=== PATIENT | female | born 1990 | race Caucasian/White ===

== ENCOUNTER 2018-08-23 10:15 | Inpatient (IN) | payer OTHER ==
[~2018-08-23] VITALS: Ht 172.7 cm; Wt 84.4 kg
[~2018-08-23 10:15] MED LIST: FLUC150A PO; IBUP800 PO; OXYACE5T PO; SULTRIDS PO; Verotin-Gr Cap1 EACH PO; [UNRECOGNIZED DRUG - REMARK]
[2018-08-27 11:01] LABS: BASOPHILS ABSOLUTE AUTO 0.04 K/mm3 (0.00-0.23); BASOPHILS PERCENT AUTO 0 % (0-2); EOSINOPHILS PERCENT AUTO 2 % (0-6); Hematocrit 32.6 % (33.0-51.0); Hemoglobin 10.7 g/dL (11.5-16.0); IMMATURE GRAN ABSOLUTE AUTO 0.06 K/mm3 (0.00-0.10); IMMATURE GRAN PERCENT AUTO 1 % (0-1); LYMPHOCYTES ABSOLUTE AUTO 1.94 K/mm3 (0.84-5.20); LYMPHOCYTES PERCENT AUTO 19 % (21-46); MONOCYTES ABSOLUTE AUTO 0.92 K/mm3 (0.16-1.47); MONOCYTES PERCENT AUTO 9 % (4-13); Mean Corpuscular HGB 28.9 pg (26.0-34.0); Mean Corpuscular HGB Conc 32.8 g/dL (31.5-36.5); Mean Corpuscular Volume 88 fL (80-100); NEUTROPHILS ABSOLUTE AUTO 6.91 K/mm3 (1.96-9.15); NEUTROPHILS PERCENT AUTO 69 % (41-73); Platelet Count 305 K/mm3 (150-400); RDW Coefficient Variation 13.3 % (11.7-14.2); White Blood Cell Count 10.07 K/mm3 (4.00-11.30)
--- NOTE | 2018-08-27 11:45 | NUR ---
PREVISIT NOTE PT WENT TO ADMITTING FIRST, THEN LAB CALLED TO COME DOWN FOR PREVISIT TO [facility], LAB STAFF BROUGHT DOWN BEFORE DRAWING. CORRECT BAND PLACED AND LABS DRAWN - PREVISIT COMPLETED CERTIFICATE STARTED, DECLINED HEALTH START, TOUR GIVEN PT AND S.O. DECLINED FURTHER QUESTIONS - DISCUSSED PATERNITY PAPERS PT AND S.O. PLAN TO FILL OUT AFTER DELIVERY. TO RETURN IN AM AT 0530. PT AND S.O. VERBALIZED UNDERSTANDING NOT TO EAT OR DRINK AFTER 2359 TONIGHT, PER DR KAPOOR MAY DRINK WATER UNTIL 0330.
--- NOTE | 2018-08-28 08:03 | NUR ---
08/28/18 0803 Ewa Youssef REPEAT SECTION DONE AND COMPLETE. DELIVERY OF VIABLE FEMALE APGARS 9/9, WEIGHT 3235 GMS. PLACENTA REMOVED MANUALLY, WEIGHT 655 GM. CORD SEGMENT SENT WITH RT FOR CORD GASSES, CORD BLOOD SAMPLE SENT WITH BABY RN FOR BLOOD TYPE.
[2018-08-28 08:04] LABS: PCO2 Cord - Arterial 60.1 mmHg (40-50); PO2 Cord - Arterial 10.2 mmHg (16-20); pH Cord - Arterial 7.21 (7.28-7.35)
[2018-08-28 08:05] LABS: PCO2 Cord - Venous 40.3 mmHg (40-50); PO2 Cord - Venous 26.1 mmHg (28-32); pH Umbilical Cord - Venous 7.35 (7.26-7.35)
[2018-08-29 05:17] LABS: Hematocrit 29.9 % (33.0-51.0); Hemoglobin 9.6 g/dL (11.5-16.0); Mean Corpuscular HGB 28.7 pg (26.0-34.0); Mean Corpuscular HGB Conc 32.1 g/dL (31.5-36.5); Mean Corpuscular Volume 89 fL (80-100); Mean Platelet Volume 10.5 fL (9.1-12.4); Platelet Count 254 K/mm3 (150-400); RDW Coefficient Variation 13.5 % (11.7-14.2); RDW Standard Deviation 44.3 fL (35.1-46.3); Red Blood Cell Count 3.35 M/mm3 (3.80-5.20); White Blood Cell Count 12.21 K/mm3 (4.00-11.30)
--- NOTE | 2018-08-29 09:20 | NUR ---
PT UP TO VOID
--- NOTE | 2018-08-29 15:32 | NUR ---
CONSULT. MOM IS EXPERIENCED WITH BF, NIPPLES STARTED OUT INVERTED AND SHE USED A SHIELD, WITH THIS BABY NIPPLE IS SHORT SHANKED AND WILL PROBABLY FLATTEN WITH ENGORGEMENT. HAS USED SHIELD OFF AND ON WITH THIS BABY. BABY JUST FED, IS DROWSY AND NOT WILLING TO RELATCH. INSTRUCT/DEMO POSITIONING TO HELP OBTAIN A DEEPER ASYMETRIC LATCH AND THEN WIDEN LATCH FURTHER UNTIL IT IS COMFORTABLE. INSTRUCT IN SHIELD USE AND WEANING AFTER ENGORGEMENT, AND TO AVOID MARKED NIPPLE BREAKDOWN. INSTRUCT IN CHANGES TO EXPECT DURING THE FIRST WEEK WITH FEEDINGS AND WITH BABY AND REFERRED TO BF [facility] AND PAGE 18 OF BF [facility] FOR PHOTOS AND INFORMATION. QUESTIONS ANSWERED.
--- NOTE | 2018-08-29 15:42 | NUR ---
AMBULATING IN HALLS
[2018-08-30] MEDS ORDERED: IBUP800 PO (09:38)
[2018-08-30] MEDS ORDERED: Percocet 5-3251 EACH PO (09:38)
== END 2018-08-30 10:50 | disposition home or self-care (01) | DRG 788 ==
LOC: BC 08-28 05:18
PROVIDERS: ADMIT Obstetrics & Gynecology
PROC: 10D00Z1 Extraction of Products of Conception, Low, Open Approach (ICD-10-PCS; principal; 2018-08-28 07:30)
DX: O34.211 Maternal care for low transverse scar from previous cesarean delivery (principal); Z3A.39 39 weeks gestation of pregnancy; Z37.0 Single live birth; O69.81X0 Labor and delivery complicated by cord around neck, without compression, not applicable or unspecified
CPT/HCPCS: 36415; 82803; 85025; 85027; 86850; 86900; 86901; J0690; J1885; J2270; J2590; J2765; J7120

== ENCOUNTER 2019-04-25 14:48 | Observation (INO) | payer OTHER ==
[~2019-04-25] VITALS: Ht 172.7 cm; Wt 74.8 kg
[~2019-04-25 14:48] MED LIST changes: +Percocet 5-3251 EACH PO
[2019-04-25 15:21] LABS: BASOPHILS ABSOLUTE AUTO 0.09 K/mm3 (0.00-0.23); BASOPHILS PERCENT AUTO 1 % (0-2); EOSINOPHILS ABSOLUTE AUTO 0.24 K/mm3 (0.00-0.68); EOSINOPHILS PERCENT AUTO 2 % (0-6); Hematocrit 38.9 % (33.0-51.0); IMMATURE GRAN ABSOLUTE AUTO 0.03 K/mm3 (0.00-0.10); IMMATURE GRAN PERCENT AUTO 0 % (0-1); LYMPHOCYTES ABSOLUTE AUTO 3.87 K/mm3 (0.84-5.20); LYMPHOCYTES PERCENT AUTO 34 % (21-46); MONOCYTES ABSOLUTE AUTO 0.84 K/mm3 (0.16-1.47); MONOCYTES PERCENT AUTO 7 % (4-13); Mean Corpuscular HGB 29.5 pg (26.0-34.0); Mean Corpuscular HGB Conc 33.4 g/dL (31.5-36.5); Mean Corpuscular Volume 88 fL (80-100); Mean Platelet Volume 10.6 fL (9.1-12.4); NEUTROPHILS ABSOLUTE AUTO 6.38 K/mm3 (1.96-9.15); NEUTROPHILS PERCENT AUTO 56 % (41-73); Platelet Count 371 K/mm3 (150-400); RDW Coefficient Variation 13.6 % (11.7-14.2); RDW Standard Deviation 44.4 fL (35.1-46.3); Red Blood Cell Count 4.41 M/mm3 (3.80-5.20); White Blood Cell Count 11.45 K/mm3 (4.00-11.30)
[2019-04-25 15:43] LABS: Alanine Aminotransfer (ALT/SGP 15 U/L (12-78); Albumin, Blood 4.1 g/dL (3.4-5.0); Albumin/Globulin Ratio 1.1 (0.8-1.8); Alk Phos 93 U/L (50-136); Anion Gap 10 mmol/L (6-16); Aspartate Aminotrans (AST/SGOT 12 U/L (12-37); Bilirubin, Total 0.2 mg/dL (0.1-1.0); Blood Urea Nitrogen 13 mg/dL (8-24); CO2, Blood 24 mmol/L (21-32); Calcium, Blood 9.7 mg/dL (8.5-10.1); Chloride, Blood 108 mmol/L (98-108); Creatinine, Blood 0.72 mg/dL (0.40-1.00); Globulin, Blood 3.6 g/dL (2.2-4.0); Glomerular Filtration Rate >60 (60-); Glucose, Blood 108 mg/dL (70-99); Potassium, Blood 3.3 mmol/L (3.5-5.5); Sodium, Blood 142 mmol/L (136-145); Total Protein, Blood 7.7 g/dL (6.4-8.2)
[2019-04-25 16:11] LABS: Source, Urine Clean Catch
[2019-04-25 16:20] LABS: Bilirubin, Urine Neg (Neg); Blood, Urine 5+ (Neg); Glucose Qualitative, Urine Neg (Neg); Ketones, Urine 1+ (Neg); Leukocyte Esterase, Urine 1+ (Neg); Nitrite, Urine Neg (Neg); Protein, Urine 1+ (Neg); Urobilinogen, Urine NORM (Normal)
[2019-04-25 16:27] LABS: Appearance, Urine Cloudy (Clear); Color, Urine Yellow (P-Yellow)
[2019-04-25 16:29] LABS: Red Blood Cells, Urine TNTC /hpf (0-2)
[2019-04-25 16:30] LABS: Bacteria Many /hpf; Squamous Epithelial Cells Few /hpf (Few)
--- NOTE | 2019-04-25 22:04 | NUR ---
PATIENT IS A NEW ADMIT FROM THE ED. SELF TRANSFER FROM W/C TO BED. AXO X4 AND INDEPENDENT. PATIENT DENIES PAIN O/10. PATIENT ORIENT TO ROOM AND CALL LIGHT SYSTEM. NS STARTED AT 125 mL/HR. URINE STRAINER PRESENT IN BR. DENIES N/V. SIGNIFICANT OTHER IN ROOM ON ADMIT AND LEFT ONCE PATIENT SETTLED IN. PATIENT WATCHNG TV. CALL LIGHT IN REACH. WILL CONTINUE TO MONITOR.
--- NOTE | 2019-04-26 03:22 | NUR ---
SHIFT SUMMARY PATIENT HAD NO ACUTE CHANGES OBSERVED THIS SHIFT. PATIENT IS VOIDING AND URINE STRAINED PER ORDERS W/O A SAMPLE. AXOX 4 AND INDEPENDENT IN THE ROOM. PIV REMAINS INTACT. VSS/AFEBRILE. PAIN 0/10 ON ADMIT AND T/O SHIFT. DENIES N/V AND SOB. NS INFUSING AT 125 mL/HR. SIGNIFICANT OTHER PRESENT IN ROOM ON ADMIT AND LEFT AFTER A FEW HRS. PATIENT WATCHING TV AND REPORTED GETTING TIRED AFTER ADMIT, WANTING TO SLEEP. CALL LIGHT IN REACH. BED IN LOWEST POSITION. WILL CONTINUE TO MONITOR UNTIL DAY SHIFT NURSE ASSUMES CARE.
[2019-04-26 05:11] LABS: Hematocrit 34.2 % (33.0-51.0); Hemoglobin 11.1 g/dL (11.5-16.0); Mean Corpuscular HGB 28.8 pg (26.0-34.0); Mean Corpuscular HGB Conc 32.5 g/dL (31.5-36.5); Mean Corpuscular Volume 89 fL (80-100); Mean Platelet Volume 10.7 fL (9.1-12.4); Platelet Count 277 K/mm3 (150-400); RDW Standard Deviation 45.4 fL (35.1-46.3); Red Blood Cell Count 3.85 M/mm3 (3.80-5.20); White Blood Cell Count 10.71 K/mm3 (4.00-11.30)
[2019-04-26 06:03] LABS: Anion Gap 5 mmol/L (6-16); Blood Urea Nitrogen 9 mg/dL (8-24); Bun/Creatinine Ratio 14.7 (12.0-20.0); CO2, Blood 24 mmol/L (21-32); Calcium, Blood 8.2 mg/dL (8.5-10.1); Chloride, Blood 115 mmol/L (98-108); Creatinine, Blood 0.61 mg/dL (0.40-1.00); Glomerular Filtration Rate >60 (60-); Glucose, Blood 102 mg/dL (70-99); Potassium, Blood 3.9 mmol/L (3.5-5.5); Sodium, Blood 144 mmol/L (136-145)
--- NOTE | 2019-04-26 18:48 | NUR ---
NO ACUTE CHANGES. PATIENT HAS NOT HAD ANY STONES PASS. SHE IS PLEASANT AND COOPERATIVE WITH CARES. FAMILY AT BEDSIDE. URINE BEING STRAINED . NO RESULTS
--- NOTE | 2019-04-27 04:58 | NUR ---
ORDER PACKER OR PACKAGER SUMMARY NO ACUTE CHANGES THIS SHIFT. PT AAOX4 AND INDEPENDENT. NO STONES NOTED WHILE STRAINING URINE. PT DENIES FEELING LIKE SHE PASSED ANY. PT REPORTS LOWER BACK PAIN. TREATED WITH IV TORADOL WITH GREAT PAIN RELIEF. PT REPORTS SHE WAS ABLE TO SLEEP THROUGH MOST OF THE NIGHT. VSS, WILL CONTINUE TO MONITOR.
[2019-04-27 08:49] LABS: BASOPHILS ABSOLUTE AUTO 0.05 K/mm3 (0.00-0.23); BASOPHILS PERCENT AUTO 1 % (0-2); EOSINOPHILS ABSOLUTE AUTO 0.19 K/mm3 (0.00-0.68); EOSINOPHILS PERCENT AUTO 3 % (0-6); Hematocrit 34.3 % (33.0-51.0); IMMATURE GRAN ABSOLUTE AUTO 0.02 K/mm3 (0.00-0.10); IMMATURE GRAN PERCENT AUTO 0 % (0-1); LYMPHOCYTES ABSOLUTE AUTO 1.71 K/mm3 (0.84-5.20); LYMPHOCYTES PERCENT AUTO 26 % (21-46); MONOCYTES ABSOLUTE AUTO 0.58 K/mm3 (0.16-1.47); MONOCYTES PERCENT AUTO 9 % (4-13); Mean Corpuscular HGB 28.9 pg (26.0-34.0); Mean Corpuscular HGB Conc 32.1 g/dL (31.5-36.5); Mean Corpuscular Volume 90 fL (80-100); NEUTROPHILS ABSOLUTE AUTO 4.05 K/mm3 (1.96-9.15); NEUTROPHILS PERCENT AUTO 61 % (41-73); Platelet Count 269 K/mm3 (150-400); RDW Standard Deviation 46.4 fL (35.1-46.3); Red Blood Cell Count 3.81 M/mm3 (3.80-5.20)
[2019-04-27 09:25] LABS: Alanine Aminotransfer (ALT/SGP 8 U/L (12-78); Albumin/Globulin Ratio 1.1 (0.8-1.8); Alk Phos 68 U/L (50-136); Anion Gap 4 mmol/L (6-16); Aspartate Aminotrans (AST/SGOT 6 U/L (12-37); Bilirubin, Total 0.3 mg/dL (0.1-1.0); Blood Urea Nitrogen 5 mg/dL (8-24); Bun/Creatinine Ratio 8.2 (12.0-20.0); CO2, Blood 25 mmol/L (21-32); Calcium, Blood 8.4 mg/dL (8.5-10.1); Chloride, Blood 116 mmol/L (98-108); Creatinine, Blood 0.61 mg/dL (0.40-1.00); Globulin, Blood 2.8 g/dL (2.2-4.0); Glomerular Filtration Rate >60 (60-); Glucose, Blood 90 mg/dL (70-99); Potassium, Blood 3.7 mmol/L (3.5-5.5); Sodium, Blood 145 mmol/L (136-145); Total Protein, Blood 5.8 g/dL (6.4-8.2)
--- NOTE | 2019-04-27 16:52 | NUR ---
PATIENT TRANFERRED TO [facility] AT 1650. REPORT CALLED TO [facility] BY THIS NURSE. PATIENT TAKEN BY AMBULANCE. IV REMAINED INTACT. BELONGINGS TAKEN BY MOTHER.
== END 2019-04-27 16:47 | disposition short-term general hospital (02) ==
LOC: ER 14:48 → MEDS 14:49
PROVIDERS: Internal Medicine; Nurse Practitioner Acute Care; Physician Assistant; ADMIT Internal Medicine
DX: N13.6 Pyonephrosis (principal); R82.71 Bacteriuria; E87.6 Hypokalemia; Z87.440 Personal history of urinary (tract) infections
CPT/HCPCS: 36415; 74176; 76770; 80048; 80053; 81001; 84703; 85025; 85027; 87086; 96361; 96365; 96366; 96375; 96376; 99285-25; G0378; J0696; J1650; J1885; J2405; J2765; J3010; J7030

== ENCOUNTER → 2019-09-05 | Outpatient (CLI) | payer OTHER | END | disposition home or self-care (01) | LOC: OLS 06:00 → LAB SHORT 06:00 → LAB FUT 09-03 11:00 → EDSTATUS 09-03 11:00 | DX: Z09 Encounter for follow-up examination after completed treatment for conditions other than malignant neoplasm (principal); Z87.442 Personal history of urinary calculi | CPT/HCPCS: 81050 ==

== ENCOUNTER 2021-04-01 03:42 | Inpatient (IN) | payer OTHER ==
[~2021-04-01] VITALS: Ht 175.3 cm; Wt 91.8 kg
[2021-04-01 04:31] LABS: BASOPHILS ABSOLUTE AUTO 0.03 K/mm3 (0.00-0.23); BASOPHILS PERCENT AUTO 0 % (0-2); EOSINOPHILS ABSOLUTE AUTO 0.14 K/mm3 (0.00-0.68); EOSINOPHILS PERCENT AUTO 1 % (0-6); Hematocrit 35.3 % (33.0-51.0); Hemoglobin 12.1 g/dL (11.5-16.0); IMMATURE GRAN ABSOLUTE AUTO 0.06 K/mm3 (0.00-0.10); IMMATURE GRAN PERCENT AUTO 1 % (0-1); LYMPHOCYTES ABSOLUTE AUTO 2.34 K/mm3 (0.84-5.20); LYMPHOCYTES PERCENT AUTO 22 % (21-46); MONOCYTES ABSOLUTE AUTO 0.76 K/mm3 (0.16-1.47); MONOCYTES PERCENT AUTO 7 % (4-13); Mean Corpuscular HGB Conc 34.3 g/dL (31.5-36.5); Mean Corpuscular Volume 87 fL (80-100); Mean Platelet Volume 10.9 fL (9.1-12.4); NEUTROPHILS ABSOLUTE AUTO 7.13 K/mm3 (1.96-9.15); NEUTROPHILS PERCENT AUTO 68 % (41-73); Platelet Count 273 K/mm3 (150-400); RDW Coefficient Variation 13.8 % (11.7-14.2); RDW Standard Deviation 43.7 fL (35.1-46.3); Red Blood Cell Count 4.04 M/mm3 (3.80-5.20); White Blood Cell Count 10.46 K/mm3 (4.00-11.30)
[2021-04-01 05:07] LABS: SARS-Cov-2 (COVID-19) PCR, MMC NEGATIVE (NEGATIVE)
--- NOTE | 2021-04-01 06:53 | NUR ---
04/01/21 0653 Ewa Youssef ASSUME PT CARE AT TIME OF AT 0635. OF VIABLE MALE . WEIGHT 3130 GMS. PLACENTA DELIVERED COMPLETE. CORD SEGMENT SENT FOR GASES. CORD BLOOD SAMPLE SENT WITH BABY RN.
[2021-04-01 06:56] LABS: PCO2 Cord - Arterial 65.1 mmHg (40-50); pH Cord - Arterial 7.22 (7.28-7.35)
[2021-04-01 06:58] LABS: PCO2 Cord - Venous 49.3 mmHg (40-50); pH Umbilical Cord - Venous 7.32 (7.26-7.35)
--- NOTE | 2021-04-01 11:33 | NUR ---
Assumed care from Kimberli Thompson RN.
--- NOTE | 2021-04-01 21:48 | NUR ---
PATIENT REPORTS PAIN 6/10 AFTER RECEIVING PAIN MEDICATION PER EMAR. REPOSITIONED AND PROVIDED KPAD.
[2021-04-02 06:00] LABS: BASOPHILS ABSOLUTE AUTO 0.04 K/mm3 (0.00-0.23); BASOPHILS PERCENT AUTO 0 % (0-2); EOSINOPHILS ABSOLUTE AUTO 0.14 K/mm3 (0.00-0.68); EOSINOPHILS PERCENT AUTO 1 % (0-6); Hemoglobin 10.8 g/dL (11.5-16.0); IMMATURE GRAN ABSOLUTE AUTO 0.04 K/mm3 (0.00-0.10); IMMATURE GRAN PERCENT AUTO 0 % (0-1); LYMPHOCYTES PERCENT AUTO 20 % (21-46); MONOCYTES ABSOLUTE AUTO 0.73 K/mm3 (0.16-1.47); MONOCYTES PERCENT AUTO 7 % (4-13); Mean Corpuscular HGB 30.3 pg (26.0-34.0); Mean Corpuscular HGB Conc 33.8 g/dL (31.5-36.5); Mean Corpuscular Volume 90 fL (80-100); NEUTROPHILS ABSOLUTE AUTO 6.95 K/mm3 (1.96-9.15); NEUTROPHILS PERCENT AUTO 70 % (41-73); Platelet Count 234 K/mm3 (150-400); RDW Coefficient Variation 14.2 % (11.7-14.2); RDW Standard Deviation 45.7 fL (35.1-46.3); Red Blood Cell Count 3.57 M/mm3 (3.80-5.20)
--- NOTE | 2021-04-02 09:06 | NUR ---
PUMPING EDUCATION FEEDING LOG HAND OUT FOR CLEANING PUMP KIT AND EDUCATION RESOURCE SITE GIVEN WITH INSTSRUKCTIONS. DEMONSTRATED SELF EXPRESSION OF BREAST MILK AND REINFORCED THE IDEA OF SUPLY AND DEMAND.
--- NOTE | 2021-04-02 09:10 | NUR ---
PRIOR NOTE WORN PT. CORRECT INFORMATION. DEMONSTED CORRECT USE OF SHEILD ALONG WITH SHIELD WEANING. CORRECTED LATCH FOR A MUCH MORE COMFORTABLE FEEDING. HAND OUT BOOK GIVEN. MON VERY LOVING WITH BABY AND HANDLES HIM WELL.
--- NOTE | 2021-04-02 14:34 | NUR ---
REPORT TO CLARENCE HERZOG
[2021-04-03] MEDS ORDERED: IBUP800 PO (08:45)
[2021-04-03] MEDS ORDERED: Percocet 5-3251 EACH (08:45)
== END 2021-04-03 10:20 | disposition home or self-care (01) | DRG 788 ==
LOC: BC 03:42
PROVIDERS: Advanced Practice Midwife; ADMIT Obstetrics & Gynecology
PROC: 10D00Z1 Extraction of Products of Conception, Low, Open Approach (ICD-10-PCS; principal; 2021-04-01 04:30)
DX: O34.211 Maternal care for low transverse scar from previous cesarean delivery (principal); Z3A.39 39 weeks gestation of pregnancy; Z37.0 Single live birth; Z20.822 Contact with and (suspected) exposure to COVID-19; O69.81X0 Labor and delivery complicated by cord around neck, without compression, not applicable or unspecified; O99.02 Anemia complicating childbirth; D64.9 Anemia, unspecified; Z79.899 Other long term (current) drug therapy
CPT/HCPCS: 36415; 82803; 85025; 86850; 86900; 86901; A9270; J0690; J1885; J2405; J2590; J2765; J3010; J7120; U0004

== ENCOUNTER 2022-12-23 04:58 | Inpatient (IN) | payer OTHER ==
[~2022-12-23] VITALS: Ht 175.3 cm; Wt 97.3 kg
[2022-12-23] VITALS (26 sets, daily range): BP systolic 104–141; BP diastolic 57–97
[~2022-12-23 04:58] MED LIST changes: +CEPH500 PO; +HYDR1TAB94 PO; +KETO10 PO; +ONDA4ODT MM; +Percocet 5-3251 EACH
[2022-12-23] MEDS ORDERED: PRENATAL TABLE1 EAC2 PO (06:09)
[2022-12-23 07:05] LABS: BASOPHILS ABSOLUTE AUTO 0.04 K/mm3 (0.00-0.23); BASOPHILS PERCENT AUTO 1 % (0-2); EOSINOPHILS ABSOLUTE AUTO 0.15 K/mm3 (0.00-0.68); EOSINOPHILS PERCENT AUTO 2 % (0-6); Hematocrit 36.8 % (33.0-51.0); Hemoglobin 12.8 g/dL (11.5-16.0); IMMATURE GRAN ABSOLUTE AUTO 0.08 K/mm3 (0.00-0.10); IMMATURE GRAN PERCENT AUTO 1 % (0-1); LYMPHOCYTES ABSOLUTE AUTO 2.39 K/mm3 (0.84-5.20); LYMPHOCYTES PERCENT AUTO 30 % (21-46); MONOCYTES ABSOLUTE AUTO 0.83 K/mm3 (0.16-1.47); MONOCYTES PERCENT AUTO 10 % (4-13); Mean Corpuscular HGB 30.4 pg (26.0-34.0); Mean Corpuscular HGB Conc 34.8 g/dL (31.5-36.5); Mean Corpuscular Volume 87 fL (80-100); NEUTROPHILS ABSOLUTE AUTO 4.52 K/mm3 (1.96-9.15); NEUTROPHILS PERCENT AUTO 56 % (41-73); RDW Coefficient Variation 13.5 % (11.7-14.2); RDW Standard Deviation 43.3 fL (35.1-46.3); Red Blood Cell Count 4.21 M/mm3 (3.80-5.20); White Blood Cell Count 8.01 K/mm3 (4.00-11.30)
[2022-12-23 07:28] LABS: Mean Platelet Volume 11.4 fL (9.1-12.4); Platelet Count 260 K/mm3 (150-400)
[2022-12-23 08:21] LABS: PCO2 Cord - Venous 61.4 mmHg (40-50); PO2 Cord - Venous 15.1 mmHg (28-32); pH Umbilical Cord - Venous 7.21 (7.26-7.35)
[2022-12-23 08:23] LABS: PCO2 Cord - Arterial 54.7 mmHg (40-50); pH Cord - Arterial 7.22 (7.28-7.35)
--- NOTE | 2022-12-23 08:40 | NUR ---
12/23/22 0840 Katia Danielson VIABLE BABY GIRL BORN VIA REPEAT SECTION AT 0804. BILATERAL TUBAL LIGATION DONE. CORD SEGMENT FOR GASSED GIVEN TO JACKIE PATHAK, CORD BLOOD GIVEN TO HIRAM LIMA. FALLOPIAN TUBE SEGMENT TO PATHOLOGY.
[2022-12-24 03:27] VITALS: BP 108/60
[2022-12-24 05:55] LABS: BASOPHILS ABSOLUTE AUTO 0.05 K/mm3 (0.00-0.23); BASOPHILS PERCENT AUTO 1 % (0-2); EOSINOPHILS ABSOLUTE AUTO 0.13 K/mm3 (0.00-0.68); EOSINOPHILS PERCENT AUTO 1 % (0-6); Hemoglobin 12.3 g/dL (11.5-16.0); IMMATURE GRAN ABSOLUTE AUTO 0.03 K/mm3 (0.00-0.10); IMMATURE GRAN PERCENT AUTO 0 % (0-1); LYMPHOCYTES ABSOLUTE AUTO 2.37 K/mm3 (0.84-5.20); LYMPHOCYTES PERCENT AUTO 24 % (21-46); MONOCYTES ABSOLUTE AUTO 0.77 K/mm3 (0.16-1.47); MONOCYTES PERCENT AUTO 8 % (4-13); Mean Corpuscular HGB 30.2 pg (26.0-34.0); Mean Corpuscular HGB Conc 33.2 g/dL (31.5-36.5); Mean Corpuscular Volume 91 fL (80-100); Mean Platelet Volume 10.7 fL (9.1-12.4); NEUTROPHILS ABSOLUTE AUTO 6.54 K/mm3 (1.96-9.15); NEUTROPHILS PERCENT AUTO 66 % (41-73); Platelet Count 223 K/mm3 (150-400); RDW Coefficient Variation 13.7 % (11.7-14.2); RDW Standard Deviation 45.8 fL (35.1-46.3); Red Blood Cell Count 4.07 M/mm3 (3.80-5.20); White Blood Cell Count 9.89 K/mm3 (4.00-11.30)
[2022-12-24 08:13] VITALS: BP 120/66
[2022-12-24 11:03] VITALS: BP 124/57
--- NOTE | 2022-12-24 15:45 | NUR ---
PT IS REQUESTING PAIN MEDICATION. NOT DUE FOR PERCOCET UNTIL 1700. PT STATES SHE WAS JUST UP TO VOID AND IS SO MORE PAINFUL BECAUSE OF THAT. SHE WISHES TO WAIT AND SEE IF THE PAIN SETTLES DOWN BEFORE CHECKING WITH MD FOR BREAKTHROUGH MEDS.
[2022-12-24 16:53] VITALS: BP 143/78
[2022-12-24 19:57] VITALS: BP 125/60
[2022-12-24 23:29] VITALS: BP 119/74
[2022-12-25 04:29] VITALS: BP 128/63
[2022-12-25 08:19] VITALS: BP 119/65
--- NOTE | 2022-12-25 11:06 | NUR ---
DISCHARGE INSTRUCTIONS, WRITTEN AND VERBAL, GIVEN TO PT AND Fernando PRABHAKAR. ANSWERED ALL QUESTIONS AND CONCERNS. FOLLOW UP APPOINTMENT SCHEDULED. WRITTEN PRESCRIPTION GIVEN TO PT. IV DISCONTINUED BY CLINICAL REVIEWER. ALL PERSONAL BELONGINGS RETURNED. PT IS READY FOR DISCHARGE.
[2022-12-25 11:16] VITALS: BP 122/72
== END 2022-12-25 12:00 | disposition home or self-care (01) | DRG 785 ==
LOC: BC 05:03
PROVIDERS: ADMIT Obstetrics & Gynecology
PROC: 6A550ZT Pheresis of Cord Blood Stem Cells, Single (ICD-10-PCS; 2022-12-23)
PROC: 4A033R1 Measurement of Arterial Saturation, Peripheral, Percutaneous Approach (ICD-10-PCS; 2022-12-23)
PROC: 10D00Z1 Extraction of Products of Conception, Low, Open Approach (ICD-10-PCS; principal; 2022-12-23 07:30)
PROC: 0UT70ZZ Resection of Bilateral Fallopian Tubes, Open Approach (ICD-10-PCS; 2022-12-23 07:30)
DX: O34.211 Maternal care for low transverse scar from previous cesarean delivery (principal); Z30.2 Encounter for sterilization; Z67.10 Type A blood, Rh positive; Z37.0 Single live birth; O99.824 Streptococcus B carrier state complicating childbirth; Z3A.39 39 weeks gestation of pregnancy; Z53.29 Procedure and treatment not carried out because of patient's decision for other reasons
CPT/HCPCS: 36415; 82803; 85025; 86850; 86900; 86901; 88302; 90707; A9270; J0690; J1885; J2370; J2405; J2590; J2704; J2765; J3010; J7120

== ENCOUNTER 2024-09-09 22:19 | Emergency (ER) | payer OTHER ==
[~2024-09-09] VITALS: Ht 175.3 cm; Wt 81.7 kg
[~2024-09-09 22:19] MED LIST changes: +PRENATAL TABLE1 EAC2 PO
[2024-09-10 00:55] VITALS: BP 132/76
[2024-09-10] MEDS ORDERED: Penicillin V Potassium 250 MG Tab PO ONE (00:55)
[2024-09-10] MEDS ORDERED: Ibuprofen 600 MG Tab PO ONE (00:55)
[2024-09-10] MEDS ORDERED: Veetids 500500 MG PO (00:55)
[2024-09-10] MEDS ORDERED: IBU600 MG PO (00:55)
== END 2024-09-10 01:04 | disposition home or self-care (01) ==
LOC: ER 22:19
DX: K08.89 Other specified disorders of teeth and supporting structures (principal); K02.9 Dental caries, unspecified; Z87.891 Personal history of nicotine dependence; Z79.899 Other long term (current) drug therapy
CPT/HCPCS: 99282; A9270